=== PATIENT | female | born 1955 | race American Indian/Alaskan Native ===

== ENCOUNTER 2018-04-30 17:35 | Observation (INO) | payer MEDICARE ==
[2018-04-30] MEDS ORDERED: ASPIRIN PO ONE (17:58)
--- NOTE | 2018-04-30 18:01 | Emergency Department Report ---
Chief Complaint: Chest Pain Stated Complaint: CHEST PAIN Time Seen by Provider: 04/30/18 17:56 - HPI History of Present Illness: This is a 63 y.o. female with chest pain radiating into RUE. Patient also reports elevated blood pressure. Reports dizziness and palpatations this morning which have resolved. PMH HTN and CVA last year. Patient took prescribed medication clonidine, atorvastatin, amlodipine, pantoprazole, and gabapentin. - ROS Review of Systems: chest pain radiating to RUE. - Exam Vital Signs: Vital Signs 04/30/18 17:59 Temperature 98.0 F Pulse Rate 89 Respiratory 16 Rate Blood Pressure 201/124 O2 Sat by Pulse 100 Oximetry MSE screening note: Focused history and physical exam performed. Due to findings the following was ordered: Labs Main ED for further evaluation ED Disposition for MSE Condition: Stable
[2018-04-30 18:38] LABS: Basophils # (Auto) 0.1 K/mm3 (0.0-0.1); Basophils % (Auto) 0.9 % (0.0-1.8); Eosinophils % (Auto) 0.6 % (0.0-4.3); Hematocrit 42.5 % (30.3-42.9); Hemoglobin 14.3 gm/dl (10.1-14.3); Lymphocytes # (Auto) 2.3 K/mm3 (1.2-5.4); Mean Corpuscular HGB Conc 34 % (30-34); Mean Corpuscular Volume 85 fl (79-97); Monocytes # (Auto) 0.4 K/mm3 (0.0-0.8); Monocytes % (Auto) 7.1 % (0.0-7.3); Platelet Count 334 K/mm3 (140-440); Red Blood Count 5.03 M/mm3 (3.65-5.03)
[2018-04-30 18:52] LABS: BUN/Creatinine Ratio 17; Blood Urea Nitrogen 15 mg/dL (7-17); Calcium 11.2 mg/dL (8.4-10.2); Hemolysis Index 10
--- NOTE | 2018-04-30 20:05 | XRay Report ---
PROCEDURE: XR CHEST 1V AP TECHNIQUE: Frontal portable view of the chest HISTORY: Chest Pain COMPARISONS: None FINDINGS: There is prominence of the interstitial markings in both lungs and peribronchial thickening, acute ve rsus chronic. There is no evidence of focal infiltrate, pneumothorax or pleural fluid collection. The cardiac silhouette appears to be normal size. There appears to be atherosclerotic vascular calcification of the thoracic aorta. The bony structures are unremarkable. Visualization of detail of the thoracic spine is limited. IMPRESSION: 1. Prominence of the interstitial markings with peribronchial thickening, acute versus chronic. In th e proper clinical setting this may represent changes of bronchiolitis. No evidence of focal infiltrate. This document is electronically signed by Geovanna Hendrickson MD., April 30 2018 08:03:02 PM ET
[2018-04-30] MEDS ORDERED: APRESOLINE IV ONE (21:54)
[2018-04-30] MEDS ORDERED: NITROSTAT SL PRN (21:54)
[2018-04-30] MEDS ORDERED: PEPCID IV ONE (21:54)
--- NOTE | 2018-04-30 21:55 | Emergency Department Report ---
ED Chest Pain HPI - General Chief Complaint: Chest Pain Stated Complaint: CHEST PAIN Time Seen by Provider: 04/30/18 17:56 Source: patient, RN notes reviewed Mode of arrival: Ambulatory Limitations: No Limitations - History of Present Illness Initial Comments: This is a 63-year-old female. The patient is not known to this provider previously. The patient has a history of hypertension and high cholesterol, and possible neuropathic pain. She does not have a local primary care doctor that she can recall. She recently moved here from [place]. She presents to the emergency room with a complaint of nontraumatic right-sided chest pain, which radiates to the right lateral thorax. There is no vomiting or diaphoresis. The patient indicates resolved shortness of breath. She reports positive dizziness, and sensation of near syncope. This has resolved. She reports a distant history of intracranial hemorrhage. There is no leg pain, no leg swelling, no hematemesis, or bright red blood per rectum. MD Complaint: chest pain -: Gradual, hour(s) Onset: during rest Pain Location: right chest Pain Radiation: back, other Severity: moderate Severity scale (0 -10): 3 Quality: aching, heaviness Consistency: intermittent Improves With: nothing Worsens With: nothing Context: recent travel re: sense of impending doom Aspirin use within the Past 7 Days: (0) No - Related Data Home Medications Medication Instructions Recorded Confirmed Last Taken AtorvaSTATin 04/30/18 Unknown Clonidine 04/30/18 Unknown Gabapentin 04/30/18 Unknown Pantoprazole 04/30/18 Unknown Vitamin D3 04/30/18 Unknown amLODIPine 04/30/18 Unknown Allergies Allergy/AdvReac Type Severity Reaction Status Date / Time Sulfa (Sulfonamide Allergy Swelling Verified 04/30/18 17:38 Antibiotics) Heart Score - HEART Score History: Slightly suspicious EKG: Non-specific Age: 45-65 Risk factors: > 3 risk factors or hx of atherosclerotic disease Troponin: < normal limit HEART Score: 4 - Critical Actions Critical Actions: 4-6 pts:12-16.6% risk of adverse cardiac event. Should be admitted ED Review of Systems ROS: Stated complaint: CHEST PAIN Other details as noted in HPI Constitutional: malaise, weakness. 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 - Surgical History Past Surgical History?: No - Social History Smoking Status: Never Smoker Substance Use Type: None - Medications Home Medications: Home Medications Medication Instructions Recorded Confirmed Last Taken Type AtorvaSTATin 04/30/18 Unknown History Clonidine 04/30/18 Unknown History Gabapentin 04/30/18 Unknown History Pantoprazole 04/30/18 Unknown History Vitamin D3 04/30/18 Unknown History amLODIPine 04/30/18 Unknown History ED Physical Exam - General Limitations: No Limitations General appearance: alert, in no apparent distress - Head Head exam: Present: atraumatic, normocephalic - Eye Eye exam: Present: normal appearance, EOMI, other (visual acuity intact to finger counting, color perception, reading at a close distance). Absent: nystagmus - ENT ENT exam: Present: normal exam, normal orophraynx, mucous membranes moist, normal external ear exam - Neck Neck exam: Present: normal inspection, full ROM. Absent: tenderness, meningismus - Respiratory Respiratory exam: Present: normal lung sounds bilaterally. Absent: respiratory distress, chest wall tenderness - Cardiovascular Cardiovascular Exam: Present: regular rate, normal rhythm, normal heart sounds. Absent: bradycardia, tachycardia, irregular rhythm, systolic murmur, diastolic murmur, rubs, gallop - GI/Abdominal GI/Abdominal exam: Present: soft. Absent: distended, tenderness, guarding, rebound, rigid, pulsatile mass - Extremities Exam Extremities exam: Present: normal inspection, full ROM, pedal edema (1+ pedal edema), other (2+ pulses noted in the bilateral upper, lower extremities. Compartments soft. No long bony tenderness. The pelvis is stable.). Absent: calf tenderness - Back Exam Back exam: Present: normal inspection, full ROM. Absent: tenderness, CVA tenderness (R), paraspinal tenderness, vertebral tenderness - Neurological Exam Neurological exam: Present: alert (there is no pass pointing. There is negative pronator drift.), oriented X3, CN II-XII intact, other (Extraocular movements intact. Tongue midline. No facial droop. Facial sensation intact to light touch in the V1, V2, V3 distribution bilaterally. 5 and 5 strength in 4 extremities.. Sensation is intact to light touch in 4 extremities.). Absent: motor sensory deficit - Psychiatric Psychiatric exam: Present: anxious - Skin Skin exam: Present: warm, dry, intact, normal color. Absent: rash ED Course Vital Signs 04/30/18 04/30/18 04/30/18 17:59 21:49 22:00 Temperature 98.0 F 98.2 F Pulse Rate 89 98 H 76 Respiratory 16 15 29 H Rate Blood Pressure 201/124 160/102 Blood Pressure 213/112 [Left] O2 Sat by Pulse 100 99 Oximetry 04/30/18 04/30/18 05/01/18 22:48 23:00 00:03 Temperature Pulse Rate 78 83 78 Respiratory 15 21 Rate Blood Pressure 180/126 183/101 144/86 Blood Pressure [Left] O2 Sat by Pulse Oximetry 05/01/18 05/01/18 01:00 01:39 Temperature Pulse Rate 74 85 Respiratory 24 Rate Blood Pressure 145/86 145/80 Blood Pressure [Left] O2 Sat by Pulse Oximetry - Reevaluation(s) Reevaluation #1: 04/30/18 22:33 Differential diagnosis, including but not limited to: Acute coronary syndrome, pulmonary embolus, pneumonia, GERD, gastritis, hiatal hernia, orthostasis, vagal event, structural cardiac disease, intracranial hemorrhage Assessment and plan: 63-year-old female with chest pain, hypertension, abnormal EKG, no prior for comparison, no recent cardiac risk stratification, not on aspirin therapy, recommended admission for blood pressure control and cardiac risk stratification. Has a GCS of 15. Has an NIH score of 0. Doubt intracranial hemorrhage, but given her articulated history, we will obtain a noncontrast CT scan of the brain. Given history of chest pain, near syncope, recent travel to [place], we have sent a d-dimer to risk stratify the patient for pulmonary embolus, I find her to be low risk by well's criteria, but d-dimer comes back elevated, so we will obtain a CT scan of the chest. I discussed plan of care with patient, including recommendation for admission for blood pressure control and cardiac risk stratification, patient has endorsed understanding, and indicates she is amenable to hospitalization. Reevaluation #2: 03/08/19 23:21 ct head negative bp improved Dr Vogt accepts to medical service patient will remain in ER pending cta results Reevaluation #3: 05/01/18 01:41 CT scan of the chest is negative for acute disease. NITA score - Nita Score Age > 65: (0) No Aspirin use within the Past 7 Days: (0) No 3 or more CAD Risk Factors: (1) Yes 2 or more Angina events in past 24 hrs: (1) Yes Known CAD with more than 50% Stenosis: (0) No Elevated Cardiac Markers: (0) No ST Deviation Greater than 0.5mm: (0) No NITA Score: 2 ED Medical Decision Making - Lab Data Result diagrams: 04/30/18 18:11 04/30/18 18:11 Vital Signs 04/30/18 04/30/18 17:59 21:49 Temperature 98.0 F 98.2 F Pulse Rate 89 98 H Respiratory 16 15 Rate Blood Pressure 201/124 Blood Pressure 213/112 [Left] O2 Sat by Pulse 100 99 Oximetry Lab Results 04/30/18 04/30/18 04/30/18 Range/Units 18:11 18:11 19:50 WBC 5.3 (4.5-11.0) K/mm3 RBC 5.03 (3.65-5.03) M/mm3 Hgb 14.3 (10.1-14.3) gm/dl Hct 42.5 (30.3-42.9) % MCV 85 (79-97) fl MCH 28 (28-32) pg MCHC 34 (30-34) % RDW 14.0 (13.2-15.2) % Plt Count 334 (140-440) K/mm3 Lymph % (Auto) 44.0 H (13.4-35.0) % [place] % (Auto) 7.1 (0.0-7.3) % Eos % (Auto) 0.6 (0.0-4.3) % Baso % (Auto) 0.9 (0.0-1.8) % Lymph # 2.3 (1.2-5.4) K/mm3 [place] # 0.4 (0.0-0.8) K/mm3 Eos # 0.0 (0.0-0.4) K/mm3 Baso # 0.1 (0.0-0.1) K/mm3 Seg Neutrophils % 47.4 (40.0-70.0) % Seg Neutrophils # 2.5 (1.8-7.7) K/mm3 PT (12.2-14.9) Sec. INR (0.87-1.13) D-Dimer (0-234) ng/mlDDU Sodium 139 (137-145) mmol/L Potassium 4.5 (3.6-5.0) mmol/L Chloride 98.6 (98-107) mmol/L Carbon Dioxide 28 (22-30) mmol/L Anion Gap 17 mmol/L BUN 15 (7-17) mg/dL Creatinine 0.9 (0.7-1.2) mg/dL Estimated GFR > 60 ml/min BUN/Creatinine Ratio 17 % Glucose 117 H (65-100) mg/dL Calcium 11.2 H (8.4-10.2) mg/dL Troponin T < 0.010 < 0.010 (0.00-0.029) ng/mL 04/30/18 Range/Units 21:58 WBC (4.5-11.0) K/mm3 RBC (3.65-5.03) M/mm3 Hgb (10.1-14.3) gm/dl Hct (30.3-42.9) % MCV (79-97) fl MCH (28-32) pg MCHC (30-34) % RDW (13.2-15.2) % Plt Count (140-440) K/mm3 Lymph % (Auto) (13.4-35.0) % [place] % (Auto) (0.0-7.3) % Eos % (Auto) (0.0-4.3) % Baso % (Auto) (0.0-1.8) % Lymph # (1.2-5.4) K/mm3 [place] # (0.0-0.8) K/mm3 Eos # (0.0-0.4) K/mm3 Baso # (0.0-0.1) K/mm3 Seg Neutrophils % (40.0-70.0) % Seg Neutrophils # (1.8-7.7) K/mm3 PT 12.0 L (12.2-14.9) Sec. INR 0.84 L (0.87-1.13) D-Dimer 365.04 H (0-234) ng/mlDDU Sodium (137-145) mmol/L Potassium (3.6-5.0) mmol/L Chloride (98-107) mmol/L Carbon Dioxide (22-30) mmol/L Anion Gap mmol/L BUN (7-17) mg/dL Creatinine (0.7-1.2) mg/dL Estimated GFR ml/min BUN/Creatinine Ratio % Glucose (65-100) mg/dL Calcium (8.4-10.2) mg/dL Troponin T (0.00-0.029) ng/mL - EKG Data -: EKG Interpreted by Me EKG shows normal: sinus rhythm Rate: normal - EKG Data When compared to previous EKG there are: previous EKG unavailable 04/30/18 22:35 Sinus rhythm, 83 bpm, normal axis, QTC prolonged, abnormal QRS deviation 3, abnormal EKG, no prior for comparison, this is not consistent with ST elevation myocardial infarction. - Radiology Data Radiology results: report reviewed, image reviewed Critical care attestation.: If time is entered above; I have spent that time in minutes in the direct care of this critically ill patient, excluding procedure time. ED Disposition Clinical Impression: Hypertensive urgency, Chest pain, Near syncope Disposition: OP ADMIT IP TO THIS HOSP Is pt being admited?: Yes Does the pt Need Aspirin: Yes Condition: Good
[2018-04-30 22:14] LABS: INR 0.84 (0.87-1.13)
--- NOTE | 2018-04-30 22:59 | Cat Scan Report ---
PROCEDURE: CT HEAD/BRAIN WO CON TECHNIQUE: Spiral imaging of the brain was obtained without the use of IV contrast. HISTORY: dizzy near syncope hx of ICH COMPARISONS: None FINDINGS: Brain: There is no evidence of intracranial hemorrhage. No parenchymal hemorrhage is seen. No mass lesions or mass effect is identified. No abnormal extra-axial fluid collections or masses are seen. There is some decreased density seen in the periventricular white matter without mass effect. This i s fairly symmetric and does not exhibit any mass effect consistent with gliosis probably on the basis of microvascular disease or white matter changes of aging. Ventricles: The ventricles are normal size and are midline. The sulcal pattern and fissures are mild ly prominent consistent with mild atrophy.. Bone Windows: No evidence of fracture. Paranasal sinuses: Only a small portion of the maxillary sinuses are included. The superior aspect of the left maxillary sinus is opacified. There is mild patchy mucosal disease in a few of the left eth moid air cells. Paranasal sinuses otherwise are clear.. Mastoid air cells: Left mastoid air cells are hypoplastic compared to the right. Normal variant. Bot h sides are clear. IMPRESSION: There is evidence of atrophy and gliosis. No acute intracranial abnormalities are seen. Paranasal sinus disease as described. This document is electronically signed by Murali Sepulveda MD., April 30 2018 10:57:36 PM ET
[2018-04-30] MEDS ORDERED: BABY ASPIRIN PO ONE (23:21)
[2018-05-01] MEDS ORDERED: ZOFRAN IV PRN (01:06)
[2018-05-01] MEDS ORDERED: MORPHINE IV PRN (01:06)
[2018-05-01] MEDS ORDERED: TYLENOL PO PRN (01:09)
--- NOTE | 2018-05-01 01:09 | Cat Scan Report ---
PROCEDURE: CT ANGIO CHEST TECHNIQUE: Computerized tomographic angiography of the chest was performed after the IV injection of iodinated nonionic contrast including image processing. The image data was postprocessed using 2-di mensional multiplanar reformatted (MPR) and 3-dimensional (MIP and/or volume rendered) techniques. Au tomated exposure control, adjustment of mA and/or kV according to patient size, or iterative reconstr uction dose optimization techniques were utilized. CT DOSE LENGTH PRODUCT: mGycm HISTORY: cp htn near syncope COMPARISONS: None . FINDINGS: Heart and pericardium: Normal. Thoracic aorta: There is no thoracic aortic aneurysm or dissection.. Pulmonary vasculature: There is no pulmonary embolism.. Lymph nodes: No enlarged thoracic lymph nodes. Lungs: Lungs are clear. There are no infiltrates.. Pleural space: No effusion, thickening, or pneumothorax. Musculoskeletal structures: No significant abnormality. Upper abdominal structures: No significant abnormality. IMPRESSION: Heart size is normal. There is no thoracic aortic aneurysm or dissection.. There is no pulmonary embolism.. Lungs are clear. There are no infiltrates.. This document is electronically signed by Ras Caldwell MD., May 01 2018 01:07:36 AM ET
[2018-05-01] MEDS ORDERED: NITROSTAT SL PRN (01:10)
[2018-05-01] MEDS: NITRO-BID 2% TP SCH ×4 (01:39→13:37)
[2018-05-01] MEDS ORDERED: NITRO-BID 2% TP ONE (01:39)
[2018-05-01] MEDS ORDERED: LEXISCAN IV ONE ×2 (08:07→08:16)
--- NOTE | 2018-05-01 09:06 | History and Physical Report ---
CHIEF COMPLAINT: Chest. HISTORY OF PRESENT ILLNESS: The patient is a 63-year-old female who presented to the Emergency Room, complaining about chest pain and also the patient said the pain radiates to the right side of the body and is not associated with nausea or vomiting. There is no history of diaphoresis; however, there is history of shortness of breath and dizziness and a feeling of near-syncopal attach, but the patient did not pass out. PAST MEDICAL HISTORY: Pertinent for hypertension, cerebrovascular accident, hemorrhagic stroke. The patient also has hyperlipidemia. PAST SURGICAL HISTORY: Unremarkable. FAMILY HISTORY: Noncontributory. SOCIAL HISTORY: The patient does not smoke, does not drink alcohol and does not use illicit drugs. MEDICATIONS: The patient is on atorvastatin and dose and frequency unknown. Also, the patient is on amlodipine, dose and frequency unknown; clonidine, dose and frequency unknown; gabapentin, dose and frequency unknown; pantoprazole, dose and frequency unknown; vitamin D3 dose and frequency unknown. ALLERGIES: THE PATIENT IS ALLERGIC TO SULFA DRUGS. REVIEW OF SYSTEMS: CONSTITUTIONAL: There is no fever, no chills, no diaphoresis. HEENT: There is no headache or sore throat. CARDIOVASCULAR SYSTEM: There is chest pain, but no orthopnea. RESPIRATORY: There is shortness of breath, but no cough. GASTROINTESTINAL SYSTEM: There is no nausea, no vomiting, no abdominal pain, diarrhea or constipation. NEUROLOGICAL SYSTEM: Dizziness present, near-syncopal feeling present. No change in mental status. MUSCULOSKELETAL: There is no joint pain or swelling. DERMATOLOGICAL SYSTEM: There is no skin rash or itching. GENITOURINARY SYSTEM: There is no dysuria, hematuria or flank pain. Rest of system review is normal. PHYSICAL EXAMINATION: GENERAL: At the time of exam, the patient was found to be alert, oriented, not in acute distress. VITAL SIGNS: At the initial time of presentation showed temperature of 98 degrees Fahrenheit, pulse of 89, respiration of 18, blood pressure 201/124, which later came down to 145/80 after treatment. HEENT: Shows pupils to be equal, round, reactive to light and accommodation. Extraocular muscles are intact. NECK: Supple with no JVD or carotid bruit. HEART: Showed normal first and second heart sounds with no gallops or murmurs. RESPIRATORY SYSTEM: Show good air entry on both sides of the lungs with no abnormal breath sounds. GASTROINTESTINAL SYSTEM: Show abdomen to be full, soft, nontender with no organomegaly or rigidity. NEUROLOGICAL: Shows no focal deficits. MUSCULOSKELETAL SYSTEM: Show no joint swelling or tenderness. DERMATOLOGICAL SYSTEM: Showing no skin rash. GENITOURINARY SYSTEM: Showing no costovertebral angle tenderness. PERTINENT LABORATORY AND IMAGING STUDIES: The patient has history of head done. CT of the head without contrast showed no evidence of acute intracranial abnormality. Also the patient has chest x-ray done. Chest x-ray showed prominence of interstitial markings with peribronchial thickening, which the radiologist says would be acute versus chronic and that probably may represent changes of bronchioli. Lab results, the patient has CBC done, which came back showing normal WBC, normal hemoglobin and normal hematocrit with CBC differential showing elevated lymphocyte count of 44%. The patient's coagulation studies show high D-dimer level of 365. The patient's chemistry was unremarkable. Troponin level came back normal. DIAGNOSES: 1. Chest pain. 2. Hypertensive crisis. PLAN OF CARE: 1. The patient will be admitted to telemetry. 2. The patient will have serial cardiac enzymes involving troponin, total CK, and CK-MB, check q. 6 hours x 2 more levels. 3. The patient will remain n.p.o. We will have Lexiscan stress test this morning. 4. The patient will be on aspirin 325 mg by mouth daily and will be on IV morphine 2 mg every 3 hours as needed for pain and IV Zofran 4 mg every 8 hours as needed for nausea and vomiting. 5. The patient will be on nitro paste half inch to anterior chest wall q.i.d. and will be on Nitrostat 0.4 mg every 5 minutes as needed for breakthrough chest pain feels. The patient will be on oxygen by nasal cannula at 2 liter per minute. JOB# [id number] OCN/NTS
[2018-05-01] MEDS ORDERED: ASPIRIN PO SCH (10:00)
--- NOTE | 2018-05-01 10:32 | Discharge Summary ---
Providers - Providers Date of Admission: 04/30/18 23:21 Date of discharge: 05/01/18 Attending physician: MICHELLE ZARAGOZA Hospitalization Reason for admission: cp Condition: Good Hospital course: 63-year-old female presented through the emergency room with complaints of right-sided chest pain. Patient reports no associated nausea or vomiting. No diaphoresis but complains of some shortness of breath. The patient was admitted with diagnosis of chest pain and underwent CTA of the chest for further evaluation. CT of the chest was negative for PE, aortic dissection or any other acute abnormality. Patient also underwent a myocardial perfusion scan which is found to be negative most likely will discharge home. The patient's pain is reproducible with palpation. Etiology is most likely muscular skeletal/costochondritis. Dedicated discharge time 32 minutes. Disposition: DC-01 TO HOME OR SELFCARE Time spent for discharge: 32 - Discharge Diagnoses (1) Chest pain Status: Acute Core Measure Documentation - Palliative Care Palliative Care/ Comfort Measures: Not Applicable - Core Measures Any of the following diagnoses?: none Exam - Constitutional Vitals: Temp Pulse Resp BP Pulse Ox 98.2 F 78 20 161/86 98 05/01/18 04:43 05/01/18 06:15 05/01/18 04:43 05/01/18 08:58 05/01/18 04:43 General appearance: Present: no acute distress, well-nourished - EENT Eyes: Present: PERRL ENT: hearing intact, clear oral mucosa - Neck Neck: Present: supple, normal ROM - Respiratory Respiratory effort: normal Respiratory: bilateral: CTA - Cardiovascular Heart Sounds: Present: S1 & S2. Absent: rub, click - Extremities Extremities: pulses symmetrical, No edema Peripheral Pulses: within normal limits - Abdominal General gastrointestinal: Present: soft, non-tender, non-distended, normal bowel sounds Female genitourinary: Present: normal - Integumentary Integumentary: Present: clear, warm, dry - Musculoskeletal Musculoskeletal: gait normal, strength equal bilaterally - Psychiatric Psychiatric: appropriate mood/affect, intact judgment & insight - Neurologic Neurologic: CNII-XII intact, moves all extremities Plan Activity: advance as tolerated Weight Bearing Status: Weight Bear as Tolerated Diet: regular Follow up with: EMANUEL PRITCHETT MD [Other] - 3-5 Days Prescriptions: amLODIPine 10 mg PO QDAY #30 Aspirin [Aspirin TAB] 325 mg PO QDAY #30 tablet AtorvaSTATin 20 mg PO QDAY #30 Clonidine 0.2 mg PO QDAY #30 Gabapentin 600 mg PO QHS #30 Pantoprazole 80 mg PO QDAY #30 Vitamin D3 2,000 units PO DAILY #30
--- NOTE | 2018-05-01 11:52 | Treadmill Report ---
LEXISCAN STRESS TEST REPORT REASON FOR STUDY: Chest pain. STRESS TEST PROTOCOL: The patient received 0.4 mg of Lexiscan intravenously over 10 seconds. Technetium-99m tetrofosmin was subsequently injected. Baseline EKG, normal sinus rhythm. Lexiscan EKG, no ischemic changes. No chest pain. No arrhythmias. IMPRESSION: Electrocardiographically negative stress test. Nuclear imaging report to follow. [facility]# [id number] AGO/NTS
[2018-05-01 12:00] VITALS: BP 137/83
[2018-05-01 14:57] LABS: Creatine Kinase MB 1.9 ng/mL (0.0-4.0)
--- NOTE | 2018-05-01 18:05 | Treadmill Report ---
THALLIUM REPORT REASON FOR STUDY: Chest pain. IMAGING PROTOCOL: The patient received 10.45 mCi of technetium-99m Tetrofosmin for rest imaging and 30.79 mCi of Tc-99m Tetrofosmin for stress imaging. Imaging for all procedures was completed 30-90 minutes following the initial injection of Technetium 99m Tetrofosmin. SPECT imaging in the 180 degree arc was performed in the right anterior oblique projection. Computerized reconstruction of the images was performed for analysis. NUCLEAR IMAGING RESULTS: Normal left ventricular cavity size with no change from stress to rest. Distribution of radionuclide within the left ventricle revealed normal myocardial photon uptake with stress and rest imaging. Gated SPECT imaging revealed normal global LV systolic function with no significant wall motion abnormalities. The calculated left ventricular ejection fraction is 66%. IMPRESSION: Normal stress and rest myocardial perfusion imaging. Normal global LV systolic function with no significant wall motion abnormalities. EF 66%. No evidence of significant stress-induced ischemia or prior infarction. JOB# [id number] [place]
== END 2018-05-01 17:07 | disposition home or self-care (01) ==
LOC: ED 17:35 → 4A 23:21
PROVIDERS: ADMIT Internal Medicine; ATTEND Hospitalist
DX: R07.89 Other chest pain (principal); R55 Syncope and collapse; I16.9 Hypertensive crisis, unspecified; I10 Essential (primary) hypertension; I16.0 Hypertensive urgency
CPT/HCPCS: 36415; 70450; 71045; 71275; 78452; 80048; 82550; 82553; 84484; 85025; 85379; 85610; 93005; 93010; 93017; 96374; 96375; 99284; A9502; G0378; J0360; J2785; Q9967

== ENCOUNTER 2020-09-28 18:33 | Emergency (ER) | payer MEDICARE ==
--- NOTE | 2020-09-28 21:13 | Event Note ---
ED Screening Note ED Screening Note: Patient states that she has had a headache for 5 days States that she began feeling shortness of breath today Denies any chest pain, vision changes, vomiting, numbness, weakness, speech disturbance, gait disturbance She takes amlodipine, losartan, hydralazine, clonidine for her blood pressure This initial assessment/diagnostic orders/clinical plan/treatment(s) is/are subject to change based on patients health status, clinical progression and re- assessment by fellow clinical providers in the ED. Further treatment and workup at subsequent clinical providers discretion. Patient/guardian urged not to elope from the ED as their condition may be serious if not clinically assessed and managed. Initial orders include: Labs, EKG, x-ray, CT
[2020-09-28 21:45] LABS: Basophils % (Auto) 0.5 % (0.0-1.8); Eosinophils # (Auto) 0.1 K/mm3 (0.0-0.4); Eosinophils % (Auto) 2.4 % (0.0-4.3); Hematocrit 40.4 % (30.3-42.9); Hemoglobin 13.8 gm/dl (10.1-14.3); Lymphocytes # (Auto) 2.4 K/mm3 (1.2-5.4); Lymphocytes % (Auto) 46.9 % (13.4-35.0); Mean Corpuscular HGB Conc 34 % (30-34); Mean Corpuscular Volume 86 fl (79-97); Monocytes # (Auto) 0.3 K/mm3 (0.0-0.8); Monocytes % (Auto) 6.4 % (0.0-7.3); Platelet Count 285 K/mm3 (140-440); Red Blood Count 4.73 M/mm3 (3.65-5.03); Red Cell Distribution Width 13.7 % (13.2-15.2)
--- NOTE | 2020-09-28 21:46 | Cat Scan Report ---
CT head without contrast INDICATION : headache, HTN urgency. TECHNIQUE: Axial imaging performed from the skull apex through the skull base without the use of con trast. All CT scans at this location are performed using CT dose reduction for ALARA by means of aut omated exposure control. COMPARISON: None FINDINGS: Parenchyma: No mass, stroke or hemorrhage. Chronic white matter change remains. Ventricles: Ventricles are normal in size and appear symmetric. Soft tissues: Soft tissues including the orbits appear normal. Bones: No acute osseous abnormality. Sinuses: Chronic left mastoiditis unchanged. IMPRESSION: 1. No acute abnormality. 2. Chronic white matter changes stable. Signer Name: Vick Chin MD Signed: 09/28/2020 9:42 PM Workstation Name: [id number]
[2020-09-28 22:02] LABS: Alanine Aminotransferase 30 units/L (7-56); Albumin 4.6 g/dL (3.9-5); BUN/Creatinine Ratio 10; Blood Urea Nitrogen 9 mg/dL (7-17); Calcium 10.3 mg/dL (8.4-10.2); Hemolysis Index 13
--- NOTE | 2020-09-28 22:02 | XRay Report ---
CHEST 2 VIEWS INDICATION: SOB, HTN urgency. COMPARISON: [facility] 2018. FINDINGS: Support devices: None. Heart: Within normal limits. Lungs/Pleura: No acute air space or interstitial disease. No significant pleural effusion. IMPRESSION: No acute findings. Signer Name: Vick Chin MD Signed: 09/28/2020 9:58 PM Workstation Name: [id number]
[2020-09-28 22:50] LABS: Bilirubin,Urine NEG (Negative); Blood,Urine NEG (Negative); Color,Urine Straw (Yellow); Protein,Urine <15 mg/dL mg/dL (Negative); Urobilinogen,Urine < 2.0 mg/dL (<2.0)
[2020-09-29] MEDS ORDERED: ACETAMINOPHEN 325 MG TAB PO ONE (04:20)
--- NOTE | 2020-09-29 04:31 | Emergency Department Report ---
ED Headache HPI - General Chief Complaint: Headache Stated Complaint: HEADACHES Time Seen by Provider: 09/29/20 04:01 Source: patient Exam Limitations: no limitations - History of Present Illness Initial Comments: Patient is a 65-year-old female who presents emergency room with complaints of headache. Patient states her headache started 5 days ago. Patient states that a global headache. Patient states the burning sensation. Patient states it is a 10 out of 10. Patient states that she is also having high blood pressure even though she is compliant with her blood pressure medications. Patient denies chest pain and shortness of breath. Patient denies neck stiffness. Patient denies blurry vision. Patient denies visual change. Patient denies fever and chills. Patient states she has been taking ibuprofen recently for back pain her headache. Patient states the ibuprofen works better and the headache comes right back. Patient states she has a past medical history of hypertension, hyperlipidemia and back pain and diabetes. Patient states she is taking all of her diabetes. Patient states she is taking atorvastatin, Lipitor for hyperlipidemia. Patient states she is taking losartan 50 mg daily, hydralazine 50 mg daily, Norvasc 10 mg daily, clonidine 0.2 mg daily all for her blood pressure. Patient states she is compliant with all of her medications. Patient states she was recently prescribed ibuprofen at her milligrams for her back pain. Patient denies recent travel. Patient denies recent international travel. Patient denies exposure to the novel coronavirus. Patient denies sick contacts. Patient denies fever and chills. Patient denies cough. Patient denies diarrhea. Patient denies coming in contact with anybody with symptoms of the no greg coronavirus. Timing/Duration: constant Quality: severe Head Injury Location: global Recent Head Trauma: no recent headache/trauma Modifying Factors: improves with: movement, rest Associated Symptoms: denies: confusion, fatigue, facial pain, fever/chills, flushing, loss of consciousness, nausea/vomiting, nasal congestion, nasal drainage, numbness in legs/feet, rash, seizures, sinus infection, stiff neck, vision changes, weakness Allergies/Adverse Reactions: Allergies Sulfa (Sulfonamide Antibiotics) Allergy (Verified 04/30/18 17:38) Swelling Home Medications: Ambulatory Orders Aspirin 325 mg PO QDAY #30 tablet 05/01/18 AtorvaSTATin 20 mg PO QDAY #30 05/01/18 Clonidine 0.2 mg PO QDAY #30 05/01/18 Gabapentin 600 mg PO QHS #30 05/01/18 Pantoprazole 80 mg PO QDAY #30 05/01/18 Vitamin D3 2,000 units PO DAILY #30 05/01/18 amLODIPine 10 mg PO QDAY #30 05/01/18 Losartan [Cozaar] 50 mg PO QDAY 09/29/20 Losartan/Hydrochlorothiazide [Losartan-Hctz 100-25 mg Tab] 1 each PO QAM 15 Days #15 tablet 09/29/20 hydrALAZINE [Apresoline] 50 mg PO DAILY 09/29/20 ED Review of Systems ROS: Stated complaint: HEADACHES Other details as noted in HPI Constitutional: denies: chills, fever Eyes: denies: eye pain, eye discharge, vision change ENT: denies: ear pain, throat pain Respiratory: denies: cough, shortness of breath, wheezing Cardiovascular: denies: chest pain, palpitations Endocrine: no symptoms reported Gastrointestinal: denies: abdominal pain, nausea, diarrhea Genitourinary: denies: urgency, dysuria, discharge Musculoskeletal: denies: back pain, joint swelling, arthralgia Skin: denies: rash, lesions Neurological: as per HPI, headache. 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 - Surgical History Past Surgical History?: No - Family History Family history: no significant - Social History Smoking Status: Never Smoker Substance Use Type: None - Medications Home Medications: Home Medications Medication Instructions Recorded Confirmed Last Taken Type Aspirin 325 mg PO QDAY #30 tablet 05/01/18 Unknown Rx AtorvaSTATin 20 mg PO QDAY #30 05/01/18 Unknown Rx Clonidine 0.2 mg PO QDAY #30 05/01/18 Unknown Rx Gabapentin 600 mg PO QHS #30 05/01/18 Unknown Rx Pantoprazole 80 mg PO QDAY #30 05/01/18 Unknown Rx Vitamin D3 2,000 units PO DAILY #30 05/01/18 Unknown Rx amLODIPine 10 mg PO QDAY #30 05/01/18 Unknown Rx Losartan [Cozaar] 50 mg PO QDAY 09/29/20 09/29/20 Unknown History Losartan/Hydrochlorothiazide 1 each PO QAM 15 Days #15 tablet 09/29/20 Unknown Rx [Losartan-Hctz 100-25 mg Tab] hydrALAZINE [Apresoline] 50 mg PO DAILY 09/29/20 09/29/20 Unknown History ED Physical Exam - General Limitations: No Limitations General appearance: alert, in no apparent distress - Head Head exam: Present: atraumatic, normocephalic - Eye Eye exam: Present: normal appearance, PERRL Pupils: Present: normal accommodation - ENT ENT exam: Present: mucous membranes moist - Neck Neck exam: Present: normal inspection, full ROM. Absent: tenderness, meningismus, lymphadenopathy, thyromegaly - Respiratory Respiratory exam: Present: normal lung sounds bilaterally. Absent: respiratory distress, wheezes, rales, rhonchi - Cardiovascular Cardiovascular Exam: Present: regular rate, normal rhythm, normal heart sounds. Absent: systolic murmur, diastolic murmur, rubs, gallop - GI/Abdominal GI/Abdominal exam: Present: soft, normal bowel sounds - Extremities Exam Extremities exam: Present: normal inspection - Back Exam Back exam: Present: normal inspection - Neurological Exam Neurological exam: Present: alert, oriented X3 - Psychiatric Psychiatric exam: Present: normal affect, normal mood - Skin Skin exam: Present: warm, dry, intact, normal color. Absent: rash ED Course Vital Signs 09/28/20 09/29/20 21:01 04:05 Temperature 98.2 F 97.7 F Pulse Rate 90 65 Respiratory 18 19 Rate Blood Pressure 202/119 Blood Pressure 159/92 [Right] O2 Sat by Pulse 100 100 Oximetry - Reevaluation(s) Reevaluation #1: Patient placed on the air sampling and monitoring. Patient blood pressure is 159/91. Patient will be given Tylenol for headache. 09/29/20 04:15 Reevaluation #2: Patient states her headache is better. Patient's blood pressure . I discussed all results and clinical findings with patient. I discussed plan of care with patient. Patient agrees with plan of care. Patient is stable for discharge. Patient will be discharged home. Patient given discharge instructions. Patient voiced understanding of discharge instructions. 09/29/20 05:11 ED Medical Decision Making - Lab Data Result diagrams: 09/28/20 21:20 09/28/20 21:20 - EKG Data -: EKG Interpreted by Me EKG shows normal: sinus rhythm, axis, intervals, QRS complexes, ST-T waves Rate: normal - Radiology Data Radiology results: report reviewed, image reviewed interpreted by me: Chest x-ray: No pneumonia, no pneumothorax, no foreign body, no osseous findings, no acute findings CT head without contrast INDICATION : headache, HTN urgency. TECHNIQUE: Axial imaging performed from the skull apex through the skull base without the use of contrast. All CT scans at this location are performed using CT dose reduction for ALARA by means of automated exposure control. COMPARISON: None FINDINGS: Parenchyma: No mass, stroke or hemorrhage. Chronic white matter change remains. Ventricles: Ventricles are normal in size and appear symmetric. Soft tissues: Soft tissues including the orbits appear normal. Bones: No acute osseous abnormality. Sinuses: Chronic left mastoiditis unchanged. IMPRESSION: 1. No acute abnormality. 2. Chronic white matter changes stable. CHEST 2 VIEWS INDICATION: SOB, HTN urgency. COMPARISON: [facility] 2018. FINDINGS: Support devices: None. Heart: Within normal limits. Lungs/Pleura: No acute air space or interstitial disease. No significant pleural effusion. IMPRESSION: No acute findings. - Medical Decision Making Patient is a 65-year-old female that presents emergency room with complaints of headache x5 days. Patient also complained of her blood pressure being elevated. Patient is compliant with her blood pressure medications. Patient had a head CT in the ER and it was negative for acute finding. Patient had a chest x-ray and it was negative for acute finding. Patient had an EKG which was normal and showed normal sinus rhythm with no ST changes. I personally reviewed the chest x-ray and EKG. Patient had labs done which were essentially unremarkable. Patient's blood pressure normalized labs on a waiting in the ER. Patient is currently taking losartan milligrams. Patient's losartan will be increased to 100 Dyazide 25 mg will be added to her. Patient instructed to monitor blood pressure and follow-up with her primary care for further management of hypertension. Critical care time documented due to the multiple reassessments, prolonged time at the bedside, interpretation of diagnostics and labs. - Differential Diagnosis Headache, hypertensive emergency, uncontrolled blood pressure, Critical Care Time: Yes Critical care time in (mins) excluding proc time.: 35 Critical care attestation.: If time is entered above; I have spent that time in minutes in the direct care of this critically ill patient, excluding procedure time. Critical Care Time: 35 minutes ED Disposition Clinical Impression: Hypertensive urgency Headache Qualifiers: Headache type: unspecified Headache chronicity pattern: acute headache Intractability: not intractable Qualified Code(s): R51.9 - Headache, unspecified Hypertension Qualifiers: Hypertension type: primary hypertension Qualified Code(s): I10 - Essential (primary) hypertension Disposition: TO HOME OR SELFCARE Is pt being admited?: No Does the pt Need Aspirin: No Condition: Stable Instructions: Preventing Hypertension, Managing Your Hypertension, Hypertension, Adult, Hypertension (ED) Additional Instructions: Patient to follow-up with primary care in 2 to 3 days. Patient to eat a heart healthy diet. Patient eat a low-salt diet. Patient to monitor blood pressure at home. Patient to keep a blood pressure log. Patient to take blood pressure log to all follow-up appointments.. Patient to stop losartan 50 mg daily and start the new prescription for losartan/hydrochlorthiazide 100/25 mg. patient to rest. Patient to increase water. Patient to take Tylenol as needed for pain. Patient to take meds as directed. Patient to return to the ER if condition worsens, changes or new symptoms arise. Prescriptions: Losartan/Hydrochlorothiazide [Losartan-Hctz 100-25 mg Tab] 1 each PO QAM 15 Days #15 tablet Referrals: HARRIS BREAUX MD [Staff Physician] - 2-3 Days Time of Disposition: 05:12
[2020-09-29 06:05] VITALS: BP 161/92
--- NOTE | 2020-09-30 13:33 | Electrocardiograph Report ---
[facility] Test Date: 2020-09-28 Test Time: 21:13:07 Pat Name: SAHRA WINKLER Department: Room: Gender: F [employer]: : [id number] Requested By: KATIE GAYLE Order Number: [id number] Reading MD: Mandi Cordero Measurements Intervals [place]ander Rate: 67 P: 33 NJ: 216 QRS: 26 QRSD: 83 T: 73 QT: 403 QTc: 425 Interpretive Statements Sinus rhythm Borderline prolonged NJ interval No previous ECG available for comparison Electronically Signed On 09-30-2020 13:33:13 EDT by Mandi Cordero
== END 2020-09-29 06:06 | disposition home or self-care (01) ==
LOC: ED 18:33
DX: I16.0 Hypertensive urgency (principal); I63.9 Cerebral infarction, unspecified; E11.8 Type 2 diabetes mellitus with unspecified complications; I61.9 Nontraumatic intracerebral hemorrhage, unspecified; G81.94 Hemiplegia, unspecified affecting left nondominant side; Z88.2 Allergy status to sulfonamides
CPT/HCPCS: 36415; 70450; 71046; 80053; 81001; 83880; 84484; 85025; 93005; 99284